=== PATIENT | male | born 1975 | race Caucasian/White ===

== ENCOUNTER 2019-10-12 10:43 | Emergency (ER) | payer BC ==
[~2019-10-12] VITALS: Ht 177.8 cm; Wt 72.6 kg
[~2019-10-12 10:43] MED LIST: CLEOCIN HCL150 MG PO; HYDROCODONE-AP1 EAC6 PO; IBUPROFEN 800800 MG PO
[2019-10-12 11:34] LABS: ABSOLUTE EOSINOPHILS 0.1 thou/uL (0.0-0.7); ABSOLUTE MONOCYTES 0.4 thou/uL (0.0-1.2); ABSOLUTE NEUTROPHILS 3.4 thou/uL (1.6-8.1); BASOPHILS 0.4 %; EOSINOPHILS 1.5 %; HEMATOCRIT 42.8 % (42.0-52.0); HEMOGLOBIN 14.7 gm/dL (14.0-18.0); LYMPHOCYTES 20.5 %; MCHC 34.3 g/dL (28.0-37.0); MCV 96.3 fL (80.0-100.0); MONOCYTES 8.2 %; MPV 8.7 fl. (7.2-11.1); NUCLEATED RBCS 0 /100WBC; PLATELET COUNT* 194 thou/uL (150-400); POLYS 69.4 %; RBC 4.44 mil/uL (4.50-6.00); WBC 4.9 thou/uL (4.0-11.0)
[2019-10-12 11:36] LABS: CALCIUM 8.6 mg/dL (8.5-10.1); CREATININE 1.2 mg/dL (0.6-1.3); POTASSIUM 3.9 mmol/L (3.5-5.1)
[2019-10-12 11:41] LABS: ALBUMIN 3.9 g/dL (3.4-5.0); TOTAL BILIRUBIN 1.3 mg/dL (<0.1-1.0); TOTAL PROTEIN 6.8 g/dL (6.4-8.2)
[2019-10-12 11:47] LABS: INR 1.1; PROTIME 10.9 Seconds (9.20-11.50)
[2019-10-12 13:00] LABS: CHOLESTEROL 179 mg/dL (<200); HDL CHOLESTEROL 61 mg/dL (>40); LDL CHOLESTEROL 106 mg/dL (<100); SERUM ASSESSMENT Clear; TC:HDL 2.9 Ratio (Not establshd); TRIGLYCERIDE 61 mg/dL (<150); VLDL 12 mg/dL (<40)
[2019-10-12 13:20] VITALS: BP 133/79
--- NOTE | 2019-10-12 17:08 | EKG ---
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: : 1975 Requested By: Siobhan Salas Order Number: [id number] MD: Bharath Woodruff Measurements Intervals [place] Rate: 54 P: 57 UT: 152 QRS: 89 QRSD: 92 T: 37 QT: 412 QTc: 391 Interpretive Statements Sinus bradycardia Probable left atrial enlargement ST elev, probable normal early repol pattern No previous ECG available for comparison Electronically Signed On 10-12-2019 17:07:55 CDT by Bhaarth Woodruff [email or web address] <ELECTRONICALLY SIGNED> By: Bharath Woodruff MD, [facility] 10/12/19 1707 1049 1049 Bharath Woodruff MD, [facility] /EPI
== END 2019-10-12 13:22 | disposition home or self-care (01) ==
LOC: M.ERS 10:43
PROVIDERS: Personal Emergency Response Attendant
DX: R07.89 Other chest pain (principal); F17.210 Nicotine dependence, cigarettes, uncomplicated

== ENCOUNTER 2019-10-21 09:51 | Emergency (ER) | payer BC ==
[~2019-10-21] VITALS: Ht 177.8 cm; Wt 74.8 kg
[2019-10-21] MEDS ORDERED: OMEPRAZOLE40 MG PO (10:15)
[2019-10-21 10:51] LABS: URINE BILIRUBIN NEGATIVE (Negative); URINE BLOOD NEGATIVE (Negative); URINE CLARITY CLEAR; URINE COLOR YELLOW; URINE GLUCOSE-RANDOM NEGATIVE (Negative); URINE KETONES NEGATIVE (Negative); URINE LEUKOCYTES-REFLEX NEGATIVE (Negative); URINE NITRITE-REFLEX NEGATIVE (Negative); URINE PROTEIN NEGATIVE (Negative); URINE UROBILINOGEN 0.2 E.U./dl (0.2-1.0)
[2019-10-21 10:53] LABS: ABSOLUTE EOSINOPHILS 0.1 thou/uL (0.0-0.7); ABSOLUTE LYMPHOCYTES 0.9 thou/uL (0.8-5.3); ABSOLUTE MONOCYTES 0.4 thou/uL (0.0-1.2); ABSOLUTE NEUTROPHILS 1.4 thou/uL (1.6-8.1); BASOPHILS 0.9 %; EOSINOPHILS 3.6 %; HEMATOCRIT 44.6 % (42.0-52.0); HEMOGLOBIN 15.5 gm/dL (14.0-18.0); LYMPHOCYTES 31.3 %; MCH 33.3 pg (26.0-34.0); MCHC 34.8 g/dL (28.0-37.0); MCV 95.6 fL (80.0-100.0); MONOCYTES 12.7 %; MPV 8.9 fl. (7.2-11.1); NUCLEATED RBCS 0 /100WBC; PLATELET COUNT* 200 thou/uL (150-400); POLYS 51.5 %; RBC 4.66 mil/uL (4.50-6.00); WBC 2.8 thou/uL (4.0-11.0)
[2019-10-21 11:02] LABS: CALCIUM 8.5 mg/dL (8.5-10.1); CREATININE 1.2 mg/dL (0.6-1.3); POTASSIUM 4.5 mmol/L (3.5-5.1)
[2019-10-21 11:06] LABS: ALBUMIN 4.2 g/dL (3.4-5.0); TOTAL BILIRUBIN 1.3 mg/dL (<0.1-1.0)
[2019-10-21 12:46] VITALS: BP 145/88
--- NOTE | 2019-10-22 13:18 | EKG ---
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1975 Requested By: Haja Arvizu Order Number: [id number] MD: Tino Figueroa Measurements Intervals [place] Rate: 48 P: 55 NV: 153 QRS: 74 QRSD: 94 T: 40 QT: 426 QTc: 381 Interpretive Statements Sinus bradycardia ST elev, probable normal early repol pattern Baseline wander in lead(s) V4 Compared to ECG 10/12/2019 10:49:04 No significant changes Electronically Signed On 10-22-2019 13:18:34 CDT by Tino Figueroa [email or web address] <ELECTRONICALLY SIGNED> By: Tino Figueroa MD, [facility] 10/22/19 1318 1051 1051 Tino Figueroa MD, [facility] /EPI
== END 2019-10-21 12:47 | disposition home or self-care (01) ==
LOC: M.ERS 09:51
PROVIDERS: Family Medicine
DX: R10.13 Epigastric pain (principal); R10.31 Right lower quadrant pain; R63.0 Anorexia; F17.210 Nicotine dependence, cigarettes, uncomplicated